=== PATIENT | female | born 1955 ===

== ENCOUNTER 2021-05-20 07:45 | Inpatient (IN) | payer OTHER ==
[~2021-05-20] VITALS: Ht 165.1 cm; Wt 77.1 kg
[2021-05-22] MEDS ORDERED: TOPROL XL50 M1 PO (10:04)
[2021-05-22] MEDS ORDERED: AVAPRO150 MG PO (10:04)
[2021-05-22] MEDS ORDERED: FOLIC ACID0.8 M1 PO (10:05)
[2021-05-22] MEDS ORDERED: LAMICTAL150 MG PO (10:05)
[2021-05-22] MEDS ORDERED: PAXIL30 MG PO (10:05)
[2021-05-22] MEDS ORDERED: TREXALL5 MG PO (10:05)
[2021-05-22] MEDS ORDERED: RISPERDAL2 MG PO (10:06)
[2021-05-22] MEDS ORDERED: LIPITOR40 MG PO (10:06)
[2021-05-22] MEDS ORDERED: SYNTHROID50 MCG PO (10:06)
[2021-05-22] MEDS ORDERED: D3 + K2 DOTS 11 EACH PO (10:08)
[2021-05-22] MEDS ORDERED: SYMPONI (10:08)
[2021-05-22] MEDS ORDERED: PROLIA60 MG/1 ML SUBCUTANEO (10:08)
[2021-05-26] MEDS ORDERED: SIMPONI50 MG/0.5 (15:35)
[2021-05-28] MEDS ORDERED: DUI500 PO (15:52)
[2021-05-28] MEDS ORDERED: ELIQUIS2.5 MG PO (15:52)
[2021-05-28] MEDS ORDERED: PERCOCET 5-3251 EACH PO (15:52)
== END 2021-05-28 18:12 | DRG 470 ==
LOC: O/R 05-26 05:35 → SURG 05-26 07:45
PROVIDERS: ADMIT Orthopaedic Surgery; ATTEND Orthopaedic Surgery
PROC: 0SRC0J9 Replacement of Right Knee Joint with Synthetic Substitute, Cemented, Open Approach (ICD-10-PCS; principal; 2021-05-26 16:30)
DX: M17.11 Unilateral primary osteoarthritis, right knee (principal); M06.9 Rheumatoid arthritis, unspecified; I10 Essential (primary) hypertension